=== PATIENT | male | born 1945 | race Caucasian/White ===

== ENCOUNTER 2018-01-29 16:35 | Outpatient (CLI) | payer MEDICARE, BC, SELFPAY ==
[2018-01-29 16:58] LABS: Abs Immature Grans 0.02 k/cumm (0.0-0.09); Absolute Basophil Count 0.03 k/cumm (0.0-0.2); Absolute Eosinophil Count 0.18 k/cumm (0.0-0.7); Absolute Lymphocyte Count 1.37 k/cumm (1.2-3.4); Absolute Monocyte Count 0.63 k/cumm (0.11-0.7); Absolute Neutrophil Count 3.33 k/cumm (1.2-6.7); Basophils % 0.5; Eosinophils % 3.2; HGB 13.3 g/dL (13.5-17.5); Immature Grans % 0.4; Lymphocytes % 24.6; Mean Corp. HGB Concentration 34.1 g/dL (32.0-36.0); Mean Corpuscular Hemoglobin 32.4 pg (27.0-33.0); Mean Corpuscular Volume 95.1 fL (80-95); Mean Platelet Volume 8.8 fL (8.0-11.0); Monocytes % 11.3; Platelet Count 203 x1000/uL (130-400); White Blood Cell Count 5.56 k/cumm (4.4-10.8)
[2018-01-29 18:00] LABS: ALT 51 U/L (12-78); AST 56 U/L (15-37); Albumin 3.6 g/dL (3.4-5.0); Alkaline Phosphatase 83 U/L (46-116); Anion Gap 5.1 mmol/L (3-11); BUN 25 mg/dL (7-18); Bilirubin, Total 0.3 mg/dL (0.2-1.0); CO2 29.9 mmol/L (21.0-32.0); CREATININE 1.05 mg/dL (0.70-1.30); Calcium 8.8 mg/dL (8.5-10.1); Chloride 104 mmol/L (98-107); Glucose 87 mg/dL (70-100); Potassium 4.3 mmol/L (3.5-5.1); Sodium 139 mmol/L (136-145)
[2018-02-02 10:07] LABS: IgA 423 mg/dL (85-499); IgG 775 mg/dL (610-1616); IgM 43 mg/dL (35-242)
== END 2018-01-29 16:36 ==
PROVIDERS: PCP Internal Medicine; Visit Provider Nurse Practitioner Family
DX: D47.2 Monoclonal gammopathy (principal)
CPT/HCPCS: 36415; 80053; 82784; 85025

== ENCOUNTER 2018-07-19 10:39 | Emergency (ER) | payer MEDICARE, BC, SELFPAY ==
[2018-07-19 10:43] VITALS: BP 140/80; PULSE 77; RESP 18; TEMP 37; O2SAT 95
--- NOTE | 2018-07-19 10:58 | W.ED.GENAD ---
Discharge Plan Disposition Patient Disposition: HOME Condition: Stable Discharge Details Chief Complaint: Orthopedic Clinical Impression: Greater trochanteric bursitis of right hip Primary Care Provider: FERNANDO ELIAS ED Provider: Tyler Torrez Home Meds and New Rx's Prescriptions: No Action bupropion HCl 150 MG tablet extended release 12 hr 150 mg PO DAILY RF: 0 ibuprofen 800 MG tablet 800 mg PO DAILY RF: 0 omeprazole 40 MG capsule,delayed release(DR/EC) 40 mg PO DAILY RF: 0 trazodone 100 MG tablet 80 mg PO HS RF: 0 cholecalciferol (vitamin D3) 1,000 UNITS tablet 1,000 units PO DAILY RF: 0 methocarbamol 500 MG tablet 500 - 1,000 mg PO Q6H PRN PRN (Reason: Muscular pain and spasm) Qty: 14 RF: 0 Discharge Instructions Instructions: Hip Bursitis (ED) Additional Instructions: If not better within a week see your primary care provider you can take 1000mg tylenol every 6 hours and 800mg ibuprofen every 8 hours as needed for pain if you develop fevers, abdominal pain, or severe worsening of pain return to the emergency department for reevaluation Medical Decision Making 72 yo male with hx of colorectal cancer, no longer receiving tx but has periodic evals with oncology per pt, who comes in with pain over lateral right hip. HE denies any falls or trauma, has had increased activity with shoveling. Denies fevers or abdominal pain. On exam he has pain over the greater trochanter, and notes pain when lying on affected side. No redness or warmth, has full rom of the hip but does have pain to resisted abdudction or adduction of the hip. He has intact distal senation and pulses, no leg swelling or calf pain. Given lack of trauma, he is bearing weight and walking do not feel xrays to eval for fx indicated. His clinical hx and exam is consistent with likely trochanteric bursitis. No findings to suggest infection or septic joint. I advised he [facility] this [facility]/early next week and return if he develops fevers, abdominal pain or severe worsening of pain Differential Diagnosis strain, sprain, bursitis HPI General Mode of arrival: ambulatory. Date/Time Provider Initiated Documentation: 07/19/18 10:50. Limitations to Documentation: no limitations. Information obtained by: patient. History of Present Illness 72 year old M presents to the emergency department with the chief complaint of right hip area pain, described as moderate, with intensity rated at 5. Quality is described as aching, and is localized to the right and lower extremity. Patient reports no radiation. Patient started experiencing this week(s) (2) and it has been constant. No relieving factors improve symptom(s), Other factors that worsen symptoms (hip extension) . Patient did receive the following treatments prior to arrival, NSAID Related Data Home Medications Medication Instructions Recorded Confirmed bupropion HCl 150 mg PO DAILY 09/30/17 07/19/18 cholecalciferol (vitamin D3) 1,000 units PO DAILY 09/30/17 07/19/18 ibuprofen 800 mg PO DAILY 09/30/17 07/19/18 methocarbamol 500 - 1,000 mg PO Q6H PRN PRN #14 09/30/17 07/19/18 tablet omeprazole 40 mg PO DAILY 09/30/17 07/19/18 trazodone 80 mg PO HS 09/30/17 07/19/18 Previous Rx's Medication Instructions Recorded methocarbamol 500 - 1,000 mg PO Q6H PRN PRN #14 09/30/17 tablet Allergies Allergy/AdvReac Type Severity Reaction Status Date / Time shellfish derived Allergy Unverified 07/19/18 10:57 General Stated Complaint: Orthopedic VALERIE: 4 Review of Systems Review of Systems All systems reviewed & are unremarkable except as noted in HPI and below Constitutional Denies chills and Denies fever(s) ENT Denies change in voice Cardiovascular Denies chest pain and Denies dyspnea Respiratory Denies cough and Denies dyspnea Gastrointestinal Denies abdominal pain, Denies nausea and Denies vomiting Genitourinary Denies dysuria Musculoskeletal Denies joint swelling Integumentary/Breasts Denies rash [facility] Social History Smoking and Tabacco status: Never Exam Const General: no acute distress Orientation: alert HENWA Head: normal to inspection Ears: external ears normal General nose exam: external nose normal Mouth: moist mucous membranes Eyes General: appearance normal, both eyes and all related structures Neck Neck: normal visual inspection Resp Effort & Inspection: normal respiratory effort and able to speak in complete sentences Cardio Rate: regular rate Skin General skin exam: no rashes or lesions noted Neuro General: alert and oriented x3 Extrem General: normal to inspection, full ROM and normal capillary refill Psych Mental Status: mental status grossly normal Course Vital Signs Temperature 37.0 C 07/19/18 10:43 Pulse 77 07/19/18 10:43 Respiratory Rate 18 07/19/18 10:43 Blood Pressure 140/80 07/19/18 10:43 Pulse Oximetry 95 07/19/18 10:43 Temperature 37.0 C 07/19/18 10:43 Temperature Source Skin 07/19/18 10:43 Pulse 77 07/19/18 10:43 Respiratory Rate 18 07/19/18 10:43 Respiratory Effort 07/19/18 10:53 Blood Pressure 140/80 07/19/18 10:43 Blood Pressure Position Sitting 07/19/18 10:43 Pulse Oximetry 95 07/19/18 10:43 Oxygen Delivery Method Room Air 07/19/18 10:43 Oxygen Flow Rate 0 07/19/18 10:43 Pain Level 7 07/19/18 10:43
--- NOTE | 2018-07-19 11:03 | ED.GENADUL_ITS ---
Discharge Plan Disposition Patient Disposition: HOME Condition: Stable Discharge Details Chief Complaint: Orthopedic Clinical Impression: Greater trochanteric bursitis of right hip Primary Care Provider: FERNANDO ELIAS ED Provider: Tyler Torrez Home Meds and New Rx's Prescriptions: No Action bupropion HCl 150 MG tablet extended release 12 hr 150 mg PO DAILY RF: 0 ibuprofen 800 MG tablet 800 mg PO DAILY RF: 0 omeprazole 40 MG capsule,delayed release(DR/EC) 40 mg PO DAILY RF: 0 trazodone 100 MG tablet 80 mg PO HS RF: 0 cholecalciferol (vitamin D3) 1,000 UNITS tablet 1,000 units PO DAILY RF: 0 methocarbamol 500 MG tablet 500 - 1,000 mg PO Q6H PRN PRN (Reason: Muscular pain and spasm) Qty: 14 RF: 0 Discharge Instructions Instructions: Hip Bursitis (ED) Additional Instructions: If not better within a week see your primary care provider you can take 1000mg tylenol every 6 hours and 800mg ibuprofen every 8 hours as needed for pain if you develop fevers, abdominal pain, or severe worsening of pain return to the emergency department for reevaluation Medical Decision Making 72 yo male with hx of colorectal cancer, no longer receiving tx but has periodic evals with oncology per pt, who comes in with pain over lateral right hip. HE denies any falls or trauma, has had increased activity with shoveling. Denies fevers or abdominal pain. On exam he has pain over the greater trochanter, and notes pain when lying on affected side. No redness or warmth, has full rom of the hip but does have pain to resisted abdudction or adduction of the hip. He has intact distal senation and pulses, no leg swelling or calf pain. Given lack of trauma, he is bearing weight and walking do not feel xrays to eval for fx indicated. His clinical hx and exam is consistent with likely trochanteric bursitis. No findings to suggest infection or septic joint. I advised he [facility] later this week/early next week and return if he develops fevers, abdominal pain or severe worsening of pain Differential Diagnosis strain, sprain, bursitis HPI General Mode of arrival: ambulatory . Date/Time Provider Initiated Documentation: 07/19/18 10:50 . Limitations to Documentation: no limitations . Information obtained by: patient . History of Present Illness 72 year old M pr esents to the emergency department with the chief complaint of right hip area pain, described as moderate, with intensity rated at 5. Quality is described as aching, and is localized to the right and lower extremity. Patient reports no radiation. Patient started experiencing this week(s) (2) and it has been constant. No relieving factors improve symptom(s), Other factors that worsen symptoms (hip extension) . Patient did receive the following treatments prior to arrival, NSAID Related Data Home Medications Medication Instructions Recorded Confirmed bupropion HCl 150 mg PO DAILY 09/30/17 07/19/18 cholecalciferol (vitamin D3) 1,000 units PO DAILY 09/30/17 07/19/18 ibuprofen 800 mg PO DAILY 09/30/17 07/19/18 methocarbamol 500 - 1,000 mg PO Q6H PRN PRN #14 09/30/17 07/19/18 tablet omeprazole 40 mg PO DAILY 09/30/17 07/19/18 trazodone 80 mg PO HS 09/30/17 07/19/18 Previous Rx's Medication Instructions Recorded methocarbamol 500 - 1,000 mg PO Q6H PRN PRN #14 09/30/17 tablet Allergies Allergy/AdvReac Type Severity Reaction Status Date / Time shellfish derived Allergy Unverified 07/19/18 10:57 General Stated Complaint: Orthopedic VALERIE: 4 Review of Systems Review of Systems All systems reviewed & are unremarkable except as noted in HPI and below Constitutional Denies chills and Denies fever(s) ENT Denies change in voice Cardiovascular Denies chest pain and Denies dyspnea Respiratory Denies cough and Denies dyspnea Gastrointestinal Denies abdominal pain, Denies nausea and Denies vomiting Genitourinary Denies dysuria Musculoskeletal Denies joint swelling Integumentary/Breasts Denies rash [facility] Social History Smoking and Tabacco status: Never Exam Const General: no acute distress Orientation: alert [facility] Head: normal to inspection Ears: external ears normal General nose exam: external nose normal Mouth: moist mucous membranes Eyes General: appearance normal, both eyes and all related structures Neck Neck: normal visual inspection Resp Effort & Inspection: normal respiratory effort and able to speak in complete sentences Cardio Rate: regular rate Skin General skin exam: no rashes or lesions noted Neuro General: alert and oriented x3 Extrem General: normal to inspection, full ROM and normal capillary refill Psych Mental Status: mental status grossly normal Course Vital Signs Temperature 37.0 C 07/19/18 10:43 Pulse 77 07/19/18 10:43 Respiratory Rate 18 07/19/18 10:43 Blood Pressure 140/80 07/19/18 10:43 Pulse Oximetry 95 07/19/18 10:43 Temperature 37.0 C 07/19/18 10:43 Temperature Source Skin 07/19/18 10:43 Pulse 77 07/19/18 10:43 Respiratory Rate 18 07/19/18 10:43 Respiratory Effort 07/19/18 10:53 Blood Pressure 140/80 07/19/18 10:43 Blood Pressure Position Sitting 07/19/18 10:43 Pulse Oximetry 95 07/19/18 10:43 Oxygen Delivery Method Room Air 07/19/18 10:43 Oxygen Flow Rate 0 07/19/18 10:43 Pain Level 7 07/19/18 10:43
== END 2018-07-19 11:10 | disposition home or self-care (01) ==
PROVIDERS: Emergency Provider Emergency Medicine; PCP Internal Medicine
DX: M70.61 Trochanteric bursitis, right hip (principal)
CPT/HCPCS: 99282

== ENCOUNTER 2018-09-03 10:25 | Outpatient (CLI) | payer MEDICARE, BC, SELFPAY ==
[2018-09-03 10:57] LABS: Abs Immature Grans 0.03 k/cumm (0.0-0.09); Absolute Basophil Count 0.03 k/cumm (0.0-0.2); Absolute Eosinophil Count 0.23 k/cumm (0.0-0.7); Absolute Lymphocyte Count 1.64 k/cumm (1.2-3.4); Absolute Neutrophil Count 3.38 k/cumm (1.2-6.7); Basophils % 0.5; HCT 39.5 % (40.0-50.0); HGB 13.2 g/dL (13.5-17.5); Immature Grans % 0.5; Lymphocytes % 28.2; Mean Corp. HGB Concentration 33.4 g/dL (32.0-36.0); Mean Corpuscular Volume 95.6 fL (80-95); Mean Platelet Volume 9.2 fL (8.0-11.0); Monocytes % 8.6; Neutrophils % 58.2; Platelet Count 208 x1000/uL (130-400); RBC 4.13 m/cumm (4.50-6.00); RBC Distribution Width 13.7 % (11.8-14.1); White Blood Cell Count 5.81 k/cumm (4.4-10.8)
[2018-09-03 11:05] LABS: ALT 41 U/L (12-78); AST 50 U/L (15-37); Albumin 3.5 g/dL (3.4-5.0); Alkaline Phosphatase 76 U/L (46-116); Anion Gap 9.1 mmol/L (3-11); BUN 21 mg/dL (7-18); Bilirubin, Total 0.7 mg/dL (0.2-1.0); CO2 28.9 mmol/L (21.0-32.0); CREATININE 0.98 mg/dL (0.70-1.30); Calcium 8.7 mg/dL (8.5-10.1); Chloride 103 mmol/L (98-107); Glucose 97 mg/dL (70-100); Potassium 4.2 mmol/L (3.5-5.1); Sodium 141 mmol/L (136-145); Total Protein 7.2 g/dL (6.4-8.2)
[2018-09-06 11:11] LABS: IgA 398 mg/dL (85-499); IgG 758 mg/dL (610-1616); IgM 40 mg/dL (35-242)
== END 2018-09-03 10:45 ==
PROVIDERS: Nurse Practitioner Family; PCP Internal Medicine; Visit Provider Internal Medicine Hematology & Oncology
DX: D47.2 Monoclonal gammopathy (principal)
CPT/HCPCS: 36415; 80053; 82784; 85025

== ENCOUNTER 2019-01-21 19:16 | Emergency (ER) | payer MEDICARE, BC, SELFPAY ==
[2019-01-21 19:21] VITALS: BP 136/79; PULSE 75; RESP 17; TEMP 37
[2019-01-21] MEDS: Acetaminophen 500 MG TAB 1000 MG PO (19:36)
[2019-01-21] MEDS: Ibuprofen 800 MG TAB PO (19:36)
--- NOTE | 2019-01-21 19:53 | DI.RAD_ITS ---
SYMPTOM/DIAGNOSIS: PAIN IN RT KNEE, SUSPECT ACL INJURY RIGHT KNEE: No fracture or joint effusion is seen. Femoral tibial joint spaces are well maintained. There are minimal patellofemoral degenerative changes. IMPRESSION: No acute abnormality
--- NOTE | 2019-01-21 20:13 | DI.VRAD_ITS ---
EXAM: XR Right Knee EXAM DATE/TIME: 01/21/2019 7:32 PM CLINICAL HISTORY: 73 years old, male; Pain; Knee; Right TECHNIQUE: Imaging protocol: XR Right knee. Views: 3 views. COMPARISON: CR RIGHT TIB/FIB 01/23/2012 2:29 PM FINDINGS: Bones/joints: Minimal narrowing of patellofemoral joint space cannot be excluded. No fracture or subluxation demonstrated. Soft tissues: Normal. Vasculature: Vascular calcifications. IMPRESSION: 1. No fracture or subluxation. 2. Minimal narrowing of patellofemoral joint space cannot be excluded. Dictated and Authenticated by: Vishnu Soliman MD. Ordering:BRYAN Easley MD
--- NOTE | 2019-01-21 20:19 | ED.GENADUL_ITS ---
Discharge Plan Disposition Patient Disposition: HOME Condition: Good Discharge Details Chief Complaint: GenMedical Clinical Impression: Acute pain of right knee Primary Care Provider: FERNANDO ELIAS ED Provider: Kaushal Sharma Home Meds and New Rx's Prescriptions: Continued bupropion HCl 150 MG tablet extended release 12 hr 150 mg PO DAILY RF: 0 ibuprofen 800 MG tablet 800 mg PO DAILY RF: 0 omeprazole 40 MG capsule,delayed release(DR/EC) 40 mg PO DAILY RF: 0 cholecalciferol (vitamin D3) 1,000 UNITS tablet 1,000 units PO DAILY RF: 0 sildenafil 50 mg Tablet 25 mg PO DAILY PRNRF: 0 diphenoxylate-atropine [Lomotil] 2.5-0.025 mg Tablet 1 tab PO QID PRN (Reason: Diarrhea) RF: 0 fluoxetine 20 mg Capsule 80 mg PO DAILY RF: 0 clotrimazole 1 % Cream 1 applic TOPICAL TID RF: 0 Lubricating Plus 0.5 % Dropperette 1 drp OPHTHALMIC (EYE) QID RF: 0 Discharge Instructions Instructions: ACL Injury (ED), Knee Pain (ED) Additional Instructions: Although there is no evidence of fracture on the x-ray, I am concerned that you have ligamentous damage, particularly an ACL injury. Please keep the knee brace on as directed. Please use the walker to decrease the stress on the knee. Please take Tylenol and Motrin as needed for pain. Please use ice on the knee as often as possible. If you notice any worsening of your symptoms, or any new symptoms such as vomiting, diarrhea, fever, chills, shortness of breath, chest pain, numbness, weakness, or fainting , please return immediately to the emergency department for reevaluation. Please follow up with your primary care provider as soon as possible for reassessment and reevaluation. As always, it was a pleasure participating in your medical care today. Referrals: FERNANDO ELIAS [Primary Care Provider] - Medical Decision Making This is a very pleasant 73-year-old male who presents today for evaluation of right knee pain after kicking a tree. He kicked the tree with his foot and had immediate pain in the posterior aspect of his knee. Physical exam demonstrates no significant abnormalities aside for notable increase in tenderness for anterior drawer test and on palpation of the posterior aspect of the knee. Neurovascular exam is otherwise intact, the remainder of the muscular exam is intact he is still able to flex and extend his knee without any significant difficulty, normal flexion extension of the foot as well. No evidence of muscle rupture. No severe knee instability. X-ray was ordered and shows no evidence of acute fracture or segund fracture. There may certainly be a component of a Sánchez's cyst, however I am still notably concerned for an ACL injury. Will recommend continued ice, NSAIDs, hinged knee brace and walker. The patient would prefer to follow-[facility] We discussed red flags which to return. I have extensively reviewed the treatment plan and discharge instructions with the patient and their family. I have addressed all patient concerns at this time. The patient and family was made aware of what symptoms to monitor for that would warrant a return to the emergency department. Discussed the plan with the patient and family, they demonstrate verbal understanding and agreement with our assessment and plan at this time. FINDINGS: Bones/joints: Minimal narrowing of patellofemoral joint space cannot be excluded. No fracture or subluxation demonstrated. Soft tissues: Normal. Vasculature: Vascular calcifications. IMPRESSION: 1. No fracture or subluxation. 2. Minimal narrowing of patellofemoral joint space cannot be excluded. Dictated and Authenticated by: Vishnu Soliman MD. Ordering:BRYAN Easley MD HPI General Date/Time Provider Initiated Documentation: 01/21/19 19:19 . HPI Narrative: This is a 73-year-old male with a past medical history of PTSD, colon cancer, depression, who presents today for evaluation of right knee pain. Patient states that he was outside when he kicked a tree, unfortunately the tree was stuck in the ground and did not move. He noticed a sudden sharp pain in the posterior aspect of the knee, even though he was kicking with his foot. He denies any numbness tingling or weakness. He had notable pain with ambulation. Aside for pain in the posterior aspect of the knee he denies any pain anywhere else. No other modifying factors. He does not recall hearing a pop. He denies any recent fluoroquinolone use or steroid use. No other complaints at this time. No other modifying factors. Related Data Home Medications Medication Instructions Recorded Confirmed bupropion HCl 150 mg PO DAILY 09/30/17 01/21/19 cholecalciferol (vitamin D3) 1,000 units PO DAILY 09/30/17 01/21/19 ibuprofen 800 mg PO DAILY 09/30/17 01/21/19 omeprazole 40 mg PO DAILY 09/30/17 01/21/19 Lubricating Plus 1 drp OPHTHALMIC (EYE) QID 01/21/19 01/21/19 clotrimazole 1 applic TOPICAL TID 01/21/19 01/21/19 diphenoxylate-atropine [Lomotil] 1 tab PO QID PRN 01/21/19 01/21/19 fluoxetine 80 mg PO DAILY 01/21/19 01/21/19 sildenafil 25 mg PO DAILY PRN 01/21/19 01/21/19 Allergies Allergy/AdvReac Type Severity Reaction Status Date / Time shellfish derived Allergy Unverified 07/19/18 10:57 General Stated Complaint: GenMedical VALERIE: 3 Review of Systems Review of Systems All systems reviewed & are unremarkable except as noted in HPI and below PFSH Social History Smoking/Tobacco Use Status: Never Alcohol Intake: never Drug use: Never Substance use type: does not use Do you feel safe at home: Yes Do you feel safe in your relationship?: Yes Exam Narrative Exam Narrative: 1.Const: Well-nourished, Well-developed, appearing stated age 2.Eyes: PERRL, no conjunctival injection, and symmetrical lids. 3.ENT: Atraumatic external nose and ears. Moist MM. Neck: Symmetric, trachea midline, No thyromegaly. 4.CVS: +S1/S2, No murmurs or gallops. Peripheral pulses 2+ and equal in all extremities. Brisk capillary refill in all extremities. 5.RESP: Unlabored respiratory effort. Clear to auscultation bilaterally. No wheezes rales or rhonchi 6.GI: Soft, Nontender/Nondistended, No hepatosplenomegaly. No guarding or rebound. 7.MSK: Normocephalic/Atraumatic, Extremities w/o deformity. No cyanosis or clubbing, Normal movement of all extremities. Right knee: The knee is stable to varus, valgus, and posterior drawer test. No deformity. Patellar grind test is negative. Herber test is negative for pain. . No edema or warmth to the joint. No ttp to the patella, tibial plateau, or fibular head. There is mild to moderate tenderness of the posterior aspect of the knee, and the posterior popliteal space. Anterior drawer test demonstrates no severe laxity but notable worsening pain and tenderness. No evidence of other tenderness or deformity in any other aspect of his foot, perdomo, calf, or thigh. No evidence of gastrocnemius or Achilles tendon rupture. 8.Skin: Warm, Dry. No rashes or lesions. 9.Neuro: socket puller II-XII grossly intact. Sensation grossly intact, no focal neurologic deficits. 10.Psych: (AAO) x3. Appropriate mood and affect Course Vital Signs Temperature 37.0 C 01/21/19 19:21 Pulse 75 01/21/19 19:21 Respiratory Rate 17 01/21/19 19:21 Blood Pressure 136/79 01/21/19 19:21 Temperature 37.0 C 01/21/19 19:21 Temperature Source Skin 01/21/19 19:21 Pulse 75 01/21/19 19:21 Respiratory Rate 17 01/21/19 19:21 Respiratory Effort 01/21/19 19:57 Respiratory Depth Normal 01/21/19 19:57 Blood Pressure 136/79 01/21/19 19:21 Oxygen Delivery Method Room Air 01/21/19 19:21 Oxygen Flow Rate 0 01/21/19 19:21 Pain Level 7 01/21/19 19:21
[2019-01-21 20:40] VITALS: BP 128/75; PULSE 78; RESP 16; TEMP 36.8; O2SAT 98
== END 2019-01-21 20:35 | disposition home or self-care (01) ==
PROVIDERS: Emergency Provider Student in an Organized Health Care Education/Training Program; PCP Internal Medicine
DX: M25.561 Pain in right knee (principal); W22.8XXA Striking against or struck by other objects, initial encounter
CPT/HCPCS: 29505; 73562; 99283; 99282; L1820

== ENCOUNTER 2019-03-07 13:25 | Outpatient (CLI) | payer MEDICARE, BC, SELFPAY ==
[2019-03-07 13:53] LABS: Abs Immature Grans 0.05 k/cumm (0.0-0.09); Absolute Basophil Count 0.05 k/cumm (0.0-0.2); Absolute Eosinophil Count 0.24 k/cumm (0.0-0.7); Absolute Lymphocyte Count 1.18 k/cumm (1.2-3.4); Absolute Monocyte Count 0.56 k/cumm (0.11-0.7); Absolute Neutrophil Count 4.71 k/cumm (1.2-6.7); Basophils % 0.7; Eosinophils % 3.5; HCT 38.9 % (40.0-50.0); HGB 13.1 g/dL (13.5-17.5); Immature Grans % 0.7; Lymphocytes % 17.4; Mean Corp. HGB Concentration 33.7 g/dL (32.0-36.0); Mean Corpuscular Hemoglobin 32.4 pg (27.0-33.0); Mean Corpuscular Volume 96.3 fL (80-95); Mean Platelet Volume 8.9 fL (8.0-11.0); Monocytes % 8.2; Neutrophils % 69.5; Platelet Count 219 x1000/uL (130-400); RBC 4.04 m/cumm (4.50-6.00); RBC Distribution Width 13.2 % (11.8-14.1); White Blood Cell Count 6.79 k/cumm (4.4-10.8)
[2019-03-07 14:05] LABS: ALT 40 U/L (16-63); AST 50 U/L (15-37); Albumin 3.5 g/dL (3.4-5.0); Alkaline Phosphatase 85 U/L (46-116); BUN 25 mg/dL (7-18); Bilirubin, Total 0.3 mg/dL (0.2-1.0); Calcium 8.5 mg/dL (8.5-10.1); Chloride 105 mmol/L (98-107); Glucose 107 mg/dL (70-100); Potassium 4.5 mmol/L (3.5-5.1); Sodium 141 mmol/L (136-145); Total Protein 7.1 g/dL (6.4-8.2)
[2019-03-08 12:37] LABS: IgA 397 mg/dL (85-499); IgG 720 mg/dL (610-1616); IgM 44 mg/dL (35-242)
== END 2019-03-07 13:45 ==
PROVIDERS: PCP Internal Medicine; Visit Provider Internal Medicine
DX: D47.2 Monoclonal gammopathy (principal)
CPT/HCPCS: 36415; 80053; 82784; 85025

== ENCOUNTER 2019-11-18 11:20 | Outpatient (CLI) | payer MEDICARE, BC, SELFPAY ==
[2019-11-18 11:50] LABS: Abs Immature Grans 0.05 k/cumm (0.0-0.09); Absolute Basophil Count 0.03 k/cumm (0.0-0.2); Absolute Eosinophil Count 0.15 k/cumm (0.0-0.7); Absolute Lymphocyte Count 1.35 k/cumm (1.2-3.4); Absolute Monocyte Count 0.53 k/cumm (0.11-0.7); Absolute Neutrophil Count 4.56 k/cumm (1.2-6.7); Basophils % 0.4; Eosinophils % 2.2; HCT 39.2 % (40.0-50.0); HGB 13.3 g/dL (13.5-17.5); Immature Grans % 0.7 %; Lymphocytes % 20.2; Mean Corp. HGB Concentration 33.9 g/dL (32.0-36.0); Mean Corpuscular Volume 94.2 fL (80-95); Mean Platelet Volume 9.2 fL (8.0-11.0); Monocytes % 7.9; Neutrophils % 68.6; Platelet Count 223 x1000/uL (130-400); RBC 4.16 m/cumm (4.50-6.00); White Blood Cell Count 6.67 k/cumm (4.4-10.8)
[2019-11-18 11:57] LABS: ALT 36 U/L (16-63); AST 40 U/L (15-37); Albumin 3.7 g/dL (3.4-5.0); Alkaline Phosphatase 94 U/L (46-116); Anion Gap 7.4 mmol/L (3-11); BUN 20 mg/dL (7-18); Bilirubin, Total 0.6 mg/dL (0.2-1.0); CO2 28.6 mmol/L (21.0-32.0); CREATININE 0.91 mg/dL (0.70-1.30); Calcium 8.9 mg/dL (8.5-10.1); Chloride 100 mmol/L (98-107); Glucose 114 mg/dL (74-106); Potassium 4.1 mmol/L (3.5-5.1); Sodium 136 mmol/L (136-145); Total Protein 7.4 g/dL (6.4-8.2)
[2019-11-21 12:27] LABS: IgA 410 mg/dL (85-499); IgG 742 mg/dL (610-1,616); IgM 37 mg/dL (35-242)
[2019-11-21 13:23] LABS: Albumin 56.8 % (55.8-66.1); Total Protein 7.1 g/dL (6.3-8.2)
== END 2019-11-18 11:40 ==
PROVIDERS: PCP Internal Medicine; Visit Provider Internal Medicine Hematology & Oncology
DX: D47.2 Monoclonal gammopathy (principal); C20 Malignant neoplasm of rectum
CPT/HCPCS: 36415; 80053; 82784; 84165; 85025

== ENCOUNTER 2020-06-06 04:24 | Outpatient (CLI) | payer MEDICARE, BC, SELFPAY ==
[2020-06-06 10:01] LABS: Abs Immature Grans 0.06 10^3/uL (0.0-0.06); Absolute Basophil Count 0.05 10^3/uL (0.0-0.2); Absolute Eosinophil Count 0.23 10^3/uL (0.0-0.7); Absolute Lymphocyte Count 1.35 10^3/uL (1.2-3.4); Absolute Monocyte Count 0.59 10^3/uL (0.1-0.8); Absolute Neutrophil Count 3.75 10^3/uL (1.2-6.7); Basophils % 0.8; Eosinophils % 3.8; HCT 39.4 % (40.0-50.0); HGB 13.2 g/dL (13.5-17.5); Lymphocytes % 22.4; MCH 31.4 pg (27.0-33.0); MCHC 33.5 % (32.0-36.0); MCV 93.6 fL (80-95); Monocytes % 9.8; Neutrophils % 62.2; Nucleated RBC 0 %; Platelet Count 192 10^3/uL (130-400); RBC 4.21 10^6/uL (4.36-5.78); RDW 12.9 % (11.8-14.1); RDW-SD 44.4 fL; WBC 6.03 10^3/uL (4.4-10.8)
[2020-06-06 10:13] LABS: ALT 44 U/L (16-63); AST 41 U/L (15-37); Albumin 3.4 g/dL (3.4-5.0); Alkaline Phosphatase 80 U/L (46-116); Anion Gap 7.5 mmol/L (3-11); BUN 26 mg/dL (7-18); Bilirubin, Total 0.5 mg/dL (0.2-1.0); CO2 28.5 mmol/L (21.0-32.0); CREATININE 0.98 mg/dL (0.70-1.30); Calcium 8.9 mg/dL (8.5-10.1); Chloride 105 mmol/L (98-107); Glucose 103 mg/dL (74-106); Sodium 141 mmol/L (136-145); Total Protein 7.1 g/dL (6.4-8.2)
[2020-06-07 10:09] LABS: IgA 375 mg/dL (85-499); IgG 748 mg/dL (610-1,616); IgM 40 mg/dL (35-242)
[2020-06-07 13:35] LABS: Albumin 57.7 % (55.8-66.1); Total Protein 6.6 g/dL (6.3-8.2)
== END 2020-06-06 04:44 ==
PROVIDERS: PCP Internal Medicine; Visit Provider Internal Medicine Hematology & Oncology
DX: C20 Malignant neoplasm of rectum (principal); D47.2 Monoclonal gammopathy
CPT/HCPCS: 36415; 80053; 82784; 84165; 85025

== ENCOUNTER 2021-01-07 03:45 | Outpatient (CLI) | payer MEDICARE, BC, SELFPAY ==
[2021-01-07 13:08] LABS: Abs Immature Grans 0.04 10^3/uL (0.0-0.06); Absolute Basophil Count 0.06 10^3/uL (0.0-0.2); Absolute Eosinophil Count 0.31 10^3/uL (0.0-0.7); Absolute Lymphocyte Count 1.96 10^3/uL (1.2-3.4); Absolute Monocyte Count 0.74 10^3/uL (0.1-0.8); Absolute Neutrophil Count 4.42 10^3/uL (1.2-6.7); Basophils % 0.8; Eosinophils % 4.1; HGB 13.3 g/dL (13.5-17.5); Immature Grans % 0.5; MCH 31.3 pg (27.0-33.0); MCHC 34.1 % (32.0-36.0); MCV 91.8 fL (80-95); MPV 8.9 fL (8.0-11.0); Monocytes % 9.8; Neutrophils % 58.8; Nucleated RBC 0 %; Platelet Count 200 10^3/uL (130-400); RBC 4.25 10^6/uL (4.36-5.78); RDW 12.7 % (11.8-14.1); RDW-SD 42.5 fL; WBC 7.53 10^3/uL (4.4-10.8)
[2021-01-07 13:31] LABS: ALT 44 U/L (16-63); AST 40 U/L (15-37); Albumin 3.8 g/dL (3.4-5.0); Alkaline Phosphatase 79 U/L (46-116); Anion Gap 8.9 mmol/L (3-11); BUN 21 mg/dL (7-18); Bilirubin, Total 0.5 mg/dL (0.2-1.0); CO2 26.1 mmol/L (21.0-32.0); CREATININE 1.2 mg/dL (0.70-1.30); Calcium 9.1 mg/dL (8.5-10.1); Chloride 104 mmol/L (98-107); Estimated GFR 59.35 (mL/min/1.73m2); Glucose 89 mg/dL (74-106); Potassium 4.1 mmol/L (3.5-5.1); Sodium 139 mmol/L (136-145); Total Protein 7.5 g/dL (6.4-8.2)
[2021-01-08 10:00] LABS: IgA 423 mg/dL (85-499); IgG 760 mg/dL (610-1,616); IgM 48 mg/dL (35-242)
[2021-01-08 14:47] LABS: Total Protein 6.9 g/dL (6.3-8.2)
== END 2021-01-07 03:46 | disposition home or self-care (01) ==
LOC: LBO 03:46
PROVIDERS: PCP Internal Medicine; Visit Provider Internal Medicine Hematology & Oncology
DX: D47.2 Monoclonal gammopathy (principal); C20 Malignant neoplasm of rectum
CPT/HCPCS: 36415; 80053; 82784; 84165; 85025

== ENCOUNTER 2021-10-02 06:43 | Day surgery (SDC) | payer MEDICARE, BC, SELFPAY ==
--- NOTE | 2021-10-02 06:58 | W.COLOREPORT ---
Colonoscopy Report Date of procedure: 10/02/21 Pre-op diagnosis general: Colon Cancer Screening Post-op diagnosis procedure note: other (mild diverticulosis) Procedure: Colonoscopy Surgeon: Jazmine Ford Anesthesia Type: General:No Airway Estimated blood loss (mL): 0 Pathology: none sent Complications: None Disposition: same day Indications: The patient is here for Colonoscopy pre-op. His last screening was in 2018 and was remarkable for a single tubular adenomatous polyp. Patient has a personal history of rectal cancer in 2006, which he underwent radiation, adjuvant chemotherapy and surgical resection. He has no family history of colon cancer. He has not had any bowel habit changes. -Discussed colonoscopy bowel prep as well as the procedure. Discussed possible complications of the procedure to include bleeding, pain, perforation, missed small lesion/polyp, sore throat, aspiration and adverse reaction to the medications. Questions were answered to patient?s satisfaction. No guarantees were implied or given. Prep: Miralax/Dulcolax Procedure Start Time: 08:51 Procedure End Time: 09:12 Retraction Time: 14 minutes Findings: mild sigmoid diverticulosis Procedure Description: After informed consent was obtained the patient was taken to the procedure room and placed in a left decubitous position. Monitors were applied and a time out was done. The patients name, date of , procedure, allergies to medications and metal in their body was reviewed. The patient was then sedated. Once sedated and comfortable a rectal exam was done. External exam was normal. Internal exam revealed a normal sphincter tone and no palpable masses. The scope was then introduced and retro-flexed. No internal hemorrhoids, polyps or masses were identified on retro-flexion. The scope was then advanced to the cecum without difficulty. The ileocecal vlave and appendiceal orifice were identified. The prep was adequate. The scope was then slowly retracted over 14 minutes back into the rectum. there were no Polyps. There was mild sigmoid diverticulosis noted. The scope was removed and the patient was woken up and taken back to Same day surgery in stable condition. The patient tolerated the procedure well and there were no immediate complications. Follow up: The patient should follow up as needed if they develop changes in bowel habits or other new gastrointestinal complaints.
--- NOTE | 2021-10-02 06:59 | W.PM.DSUDISC ---
Discharge Plan Disposition Patient Disposition: HOME Condition: Stable Discharge Details Reason For Visit: Colonoscopy Attending Provider: Jazmine Ford Primary Care Provider: Sravanthi Gill Home Meds and New Rx's Prescriptions: Continued amoxicillin 500 mg capsule 2,000 mg PO ONCE 0RF Label Comments: Pt reports taking this fall 2020 diphenoxylate-atropine 2.5-0.025 mg tablet 1 tab PO Q8H 0RF bupropion HCl 150 MG tablet extended release 12 hr 150 mg PO DAILY 0RF ibuprofen 800 MG tablet 800 mg PO DAILY 0RF omeprazole 40 MG capsule,delayed release(DR/EC) 40 mg PO DAILY 0RF cholecalciferol (vitamin D3) 1,000 UNITS tablet 1,000 units PO DAILY 0RF sildenafil 50 mg Tablet 25 mg PO DAILY PRN0RF fluoxetine 20 mg Capsule 80 mg PO DAILY 0RF clotrimazole 1 % Cream 1 applic TOPICAL TID 0RF Label Comments: pt reports applying cream in groin area carboxymethylcellulose sodium [Lubricating Plus] 0.5 % Dropperette 1 drp OPHTHALMIC (EYE) QID 0RF Discontinued bisacodyl [Dulcolax (bisacodyl)] 5 mg tablet,delayed release (DR/EC) 5 mg PO ONCE Qty: 4 0RF Rx Instructions: Take according to provider's instructions for colonoscopy prep. polyethylene glycol 3350 17 gram/dose powder 17 g PO ONCE Qty: 238 0RF Rx Instructions: To be taken as directed by prescriber's office for colonoscopy prep. Discharge Instructions Additional Instructions: Findings: mild diverticulosis Follow up: as needed Please call if you develop: fevers >101.5 Nausea or Vomiting Abdominal pain that is not transient Rectal bleeding that is more then a tbsp A hard abdomen and inability to pass gas DAY SURGERY UNIT POST ENDOSCOPY INSTRUCTIONS Instructions for everyone who is given Anesthesia: For your safety, please do the following for the next 24 Hours: a. Do not drive or operate dangerous equipment b. Do not drink alcohol beverages or use any recreational drugs for the first 24 hours or while taking pain medications. The medications in your body may have a reaction that can be dangerous. c. Do not make any important decisions or sign any important papers 1. Generally there are no restrictions on your activity after a day or so has gone by, but you may feel a bit fatigued for a few days. 2. After you arrive home you may have a light meal and return to a normal diet as you can tolerate it without feeling sick to your stomach. 3. After surgery, you may feel pain or discomfort. This should be only transient, but if it persists please contact your doctor. 4. If there are any questions regarding the findings of your procedure, please feel free to contact your doctor. 6. If you are unable to contact your doctor with a problem, contact the hospital at [phone]. 7. Continue all your regular medications unless directed otherwise. I understand the above instructions and have no questions. Signature of Patient or Responsible Adult Escort Date/Time Name of Responsible Adult Escort Signature of Nurse Date/Time Activity:: Activity as Tolerated Diet:: As Tolerated Discharge Orders Discharge Orders: Discharge Order (Routine); Ordered 10/02/21 Ordered By: Jazmine Ford
[2021-10-02 07:09] VITALS: BP 106/80; PULSE 87; RESP 18; TEMP 36.3; O2SAT 97
--- NOTE | 2021-10-02 07:09 | W.ANESPRE ---
General Info Date of Service Date Performed: 10/02/21 Height: 5 ft 5 in Weight: 72.575 kg Body Mass Index (BMI): 26.6 Surgical Procedure: Operation Date: 10/02/21 08:35 Proposed Procedure Side Surgeon xiomy Ford MD Meds Allergies and Home Medications Allergies Allergy/AdvReac Type Severity Reaction Status Date / Time shellfish derived Allergy Intermediate Anaphylaxis Unverified 10/02/21 07:15 Home Medication Medication Instructions Recorded bupropion HCl 150 mg tablet,12 hr 150 mg PO DAILY 09/30/17 sustained-release cholecalciferol (vitamin D3) 25 1,000 units PO DAILY 09/30/17 mcg (1,000 unit) tablet ibuprofen 800 mg tablet 800 mg PO DAILY 09/30/17 omeprazole 40 mg capsule,delayed 40 mg PO DAILY 09/30/17 release carboxymethylcellulose sodium 0.5 1 drp OPHTHALMIC (EYE) QID 01/21/19 % eye drops in a dropperette (Lubricating Plus) clotrimazole 1 % topical cream 1 applic TOPICAL TID 01/21/19 fluoxetine 20 mg capsule 80 mg PO DAILY 01/21/19 sildenafil 50 mg tablet 25 mg PO DAILY PRN 01/21/19 amoxicillin 500 mg capsule 2,000 mg PO ONCE cap 02/01/21 diphenoxylate-atropine 2.5 1 tab PO Q8H 02/01/21 mg-0.025 mg tablet bisacodyl 5 mg tablet,delayed 5 mg PO ONCE #4 tab 09/06/21 release (Dulcolax (bisacodyl)) polyethylene glycol 3350 17 17 g PO ONCE #238 g 09/06/21 gram/dose oral powder Current Visit Medications: Current Medications Generic Name Dose Route Start Last Admin Trade Name Freq PRN Reason Stop Dose Admin Hyoscyamine Sulfate 0.125 mg 10/02/21 07:00 Hyoscyamine 0.125 Mg Sl/Oral/Chew SL DIRECTED PRN Ringer's Solution 1,000 mls @ 80 mls/hr 10/02/21 06:00 IV 10/31/21 23:59 INFUSION JENA IV Miscellaneous Supplies 1 each 10/02/21 06:00 Iv Access IV 10/31/21 23:59 DIRECTED JENA Ondansetron HCl 4 mg 10/02/21 07:00 Ondansetron 4 Mg/2 Ml Vial IVP Q4H PRN PRN Nausea / Vomiting Sodium Chloride 0 ml 10/02/21 06:00 Normal Saline Flush 10 Ml Syr IV 10/31/21 23:59 PRN PRN Sodium Chloride 0 ml 10/02/21 06:00 Normal Saline 10 Ml Vial IJ 10/31/21 23:59 DIRECTED PRN Sterile Water 0 ml 10/02/21 06:00 Water,Injection,Sterile 10 Ml Vial IJ 10/31/21 23:59 DIRECTED PRN PFSH Active Problems Active Problems: Problem Status Onset Code Malignant neoplasm of colon C18.9 Screening for colon cancer Z12.11 Medical History Medical History (Updated 10/02/21 @ 07:34 by Michelle Rodrigues RN) Erythema intertrigo History of malignant melanoma History of rectal cancer pt reports rectal carcinoma in 2005 Paraproteinemia Sensorineural hearing loss (SNHL) of both ears Surgical History Surgical History (Updated 10/02/21 @ 07:44 by Michelle Rodrigues RN) History of ankle surgery Pt reports tendon surgery in 1984 - left ankle Hx of cholecystectomy pt reports this procedure was @ 2004, but unsure of date Hx of hand surgery pt reports was @10 years ago Hx of rotator cuff surgery Right rotator cuff, pt doesn't recall when Hx of vasectomy Tobacco Smoking/Tobacco Use Status: Never Alcohol Alcohol Intake: former Substance Use Substance use: Never Substance use type: does not use Vital Signs and Lab Results Lab Results Blood Type / Crossmatch: No Data to Display Complete Blood Count: No Data to Display Complete Metabolic Panel: No Data to Display Liver Function Panel: No Data to Display Coagulation Panel: No Data to Display Cardiac Panel: No Data to Display Arterial Blood Gas: No Data to Display Venous Blood Gas: No Data to Display Pancreas Panel: No Data to Display Thyroid Panel: No Data to Display Infectious Disease: No Data to Display Blood Cultures: No Data to Display Toxicology Panel: No Data to Display Anesthesia Assessment and Plan Anesthesia History Personal History: No History of Anesthesia Complications Family History: No Family History of Anesthesia Complications Exercise Tolerance Exercise Tolerance: Metabolic Equivalents>4 Pertinent Negatives Pertinent Negatives: No Symptoms of GERD, No Major Cardiovascular Symptoms or Complaints and No Major Pulmonary Symptoms or Complaints Cardiac & Pulmonary Exam Cardiac Exam: Normal S1/S2 Heart Sounds Pulmonary Exam: Clear Bilateral Breath Sounds Implantable Cardiac Device Does patient have a Pacemaker or an ICD?: No Airway Exam Known Difficult Airway: No Mallampati Class: 2 Mouth Opening: Normal (> 3cm) Thyromental Distance: Greater than 3 cm Neck Range of Motion: Full ROM Neck Circumference: Normal Teeth Condition: Generalized Poor Dentition ASA Classification ASA Score: ASA 3 Emergency Case?: No NPO Status NPO Status: NPO Clears >2 hours, Solids >8 hours Anesthesia Plan Resuscitation Status: Full Code Anesthesia Technique: General Anesthesia Airway Planned: Natural Airway Monitors Used: Standard Monitors Preoperative Comments:: Bilateral hearing aids. To remove left and leave right in due to positioning.
[2021-10-02] MEDS: Lactated Ringers 1,000 ML 80 ML IV (07:31)
[2021-10-02 07:51] VITALS: BMI 26.6
--- NOTE | 2021-10-02 08:23 | W.ANESPRE ---
General Info Date of Service Date Performed: 10/02/21 Height: 5 ft 5 in Weight: 72.575 kg Body Mass Index (BMI): 26.6 Surgical Procedure: Operation Date: 10/02/21 08:35 Proposed Procedure Side Surgeon xiomy Ford MD Meds Allergies and Home Medications Allergies Allergy/AdvReac Type Severity Reaction Status Date / Time shellfish derived Allergy Intermediate Anaphylaxis Unverified 10/02/21 07:15 Home Medication Medication Instructions Recorded bupropion HCl 150 mg tablet,12 hr 150 mg PO DAILY 09/30/17 sustained-release cholecalciferol (vitamin D3) 25 1,000 units PO DAILY 09/30/17 mcg (1,000 unit) tablet ibuprofen 800 mg tablet 800 mg PO DAILY 09/30/17 omeprazole 40 mg capsule,delayed 40 mg PO DAILY 09/30/17 release carboxymethylcellulose sodium 0.5 1 drp OPHTHALMIC (EYE) QID 01/21/19 % eye drops in a dropperette (Lubricating Plus) clotrimazole 1 % topical cream 1 applic TOPICAL TID 01/21/19 fluoxetine 20 mg capsule 80 mg PO DAILY 01/21/19 sildenafil 50 mg tablet 25 mg PO DAILY PRN 01/21/19 amoxicillin 500 mg capsule 2,000 mg PO ONCE cap 02/01/21 diphenoxylate-atropine 2.5 1 tab PO Q8H 02/01/21 mg-0.025 mg tablet bisacodyl 5 mg tablet,delayed 5 mg PO ONCE #4 tab 09/06/21 release (Dulcolax (bisacodyl)) polyethylene glycol 3350 17 17 g PO ONCE #238 g 09/06/21 gram/dose oral powder Current Visit Medications: Current Medications Generic Name Dose Route Start Last Admin Trade Name Freq PRN Reason Stop Dose Admin Hyoscyamine Sulfate 0.125 mg 10/02/21 07:00 Hyoscyamine 0.125 Mg Sl/Oral/Chew SL DIRECTED PRN Ringer's Solution 1,000 mls @ 80 mls/hr 10/02/21 06:00 10/02/21 07:31 IV 10/31/21 23:59 80 mls/hr INFUSION JENA Administration IV Miscellaneous Supplies 1 each 10/02/21 06:00 Iv Access IV 10/31/21 23:59 DIRECTED JENA Ondansetron HCl 4 mg 10/02/21 07:00 Ondansetron 4 Mg/2 Ml Vial IVP Q4H PRN PRN Nausea / Vomiting Sodium Chloride 0 ml 10/02/21 06:00 Normal Saline Flush 10 Ml Syr IV 10/31/21 23:59 PRN PRN Sodium Chloride 0 ml 10/02/21 06:00 Normal Saline 10 Ml Vial IJ 10/31/21 23:59 DIRECTED PRN Sterile Water 0 ml 10/02/21 06:00 Water,Injection,Sterile 10 Ml Vial IJ 10/31/21 23:59 DIRECTED PRN PFSH Active Problems Active Problems: Problem Status Onset Code Screening for colon cancer Z12.11 Malignant neoplasm of colon C18.9 Medical History Medical History (Updated 10/02/21 @ 07:34 by Michelle Rodrigues RN) Erythema intertrigo History of malignant melanoma History of rectal cancer pt reports rectal carcinoma in 2005 Paraproteinemia Sensorineural hearing loss (SNHL) of both ears Medical History Comments:: Pt wears bilateral hearing aids (removable). Pt reports he last took Ibuprofen and Vit D 3 days ago. Surgical History Surgical History (Updated 10/02/21 @ 07:44 by Michelle Rodrigues RN) History of ankle surgery Pt reports tendon surgery in 1984 - left ankle Hx of cholecystectomy pt reports this procedure was @ 2004, but unsure of date Hx of hand surgery pt reports was @10 years ago Hx of rotator cuff surgery Right rotator cuff, pt doesn't recall when Hx of vasectomy Tobacco Smoking/Tobacco Use Status: Never Alcohol Alcohol Intake: former Substance Use Substance use: Never Substance use type: does not use Vital Signs and Lab Results Vital Signs Most Recent Vital Signs in EMR: Most Recent Vital Signs Temp Pulse Resp BP Pulse Ox 36.3 C L 87 18 106/80 97 10/02/21 07:09 10/02/21 07:09 10/02/21 07:09 10/02/21 07:09 10/02/21 07:09 Lab Results Blood Type / Crossmatch: No Data to Display Complete Blood Count: No Data to Display Complete Metabolic Panel: No Data to Display Liver Function Panel: No Data to Display Coagulation Panel: No Data to Display Cardiac Panel: No Data to Display Arterial Blood Gas: No Data to Display Venous Blood Gas: No Data to Display Pancreas Panel: No Data to Display Thyroid Panel: No Data to Display Infectious Disease: No Data to Display Blood Cultures: No Data to Display Toxicology Panel: No Data to Display Anesthesia Assessment and Plan Anesthesia History Personal History: No History of Anesthesia Complications Family History: No Family History of Anesthesia Complications Exercise Tolerance Exercise Tolerance: Metabolic Equivalents>4 Implantable Cardiac Device Does patient have a Pacemaker or an ICD?: No Airway Exam Known Difficult Airway: No Mallampati Class: 2 Mouth Opening: Normal (> 3cm) Thyromental Distance: Greater than 3 cm Neck Range of Motion: Full ROM Neck Circumference: Normal Teeth Condition: Generalized Poor Dentition
[2021-10-02 09:20] VITALS: BP 122/81; PULSE 62; RESP 18; TEMP 36.2; O2SAT 96
--- NOTE | 2021-10-02 09:40 | W.ANESPOSTOP ---
Postoperative Evaluation Date, Time and Location Date Performed: 10/02/21 Time Performed: 09:23 Patient Location: Day Surgery Unit Vital Signs Most Recent Imported Vital Signs: Most Recent Vital Signs Temp Pulse Resp BP Pulse Ox 36.2 C L 62 18 122/81 96 10/02/21 09:20 10/02/21 09:20 10/02/21 09:20 10/02/21 09:20 10/02/21 09:20 Pain Score Most Recent Pain Score: Most Recent Pain Score Pain Level 0 10/02/21 09:20 Assessment Mental Status: Awake (Alert & Oriented to Patient Baseline) Airway and Respiratory Function: Patent airway with normal (patient baseline) respiratory exam Cardiovascular Function: Hemodynamically Stable Hydration Status: Adequately Hydrated Nausea & Vomiting: No Nausea or Vomiting Pain: Pt. Denies Any Pain Peripheral Nerve Block: Patient did not receive a nerve block
[2021-10-02] MEDS: Hyoscyamine 0.125 MG SL/ORAL/CHEW SL (09:54)
[2021-10-02 09:55] VITALS: BP 134/87; PULSE 59; RESP 16; TEMP 36.3; O2SAT 99
== END 2021-10-02 10:20 | disposition home or self-care (01) ==
PROVIDERS: PCP Internal Medicine; Visit Provider Surgery
PROC: 0DJD8ZZ Inspection of Lower Intestinal Tract, Via Natural or Artificial Opening Endoscopic (ICD-10-PCS; CPT 45378; principal; 2021-10-02 08:30)
DX: Z12.11 Encounter for screening for malignant neoplasm of colon (principal); Z85.048 Personal history of other malignant neoplasm of rectum, rectosigmoid junction, and anus; D89.2 Hypergammaglobulinemia, unspecified; K57.30 Diverticulosis of large intestine without perforation or abscess without bleeding; Z86.010 Personal history of colon polyps
CPT/HCPCS: G0105; J3490